=== PATIENT | female | born 1995 | race Caucasian/White ===

== ENCOUNTER 2017-07-24 11:19 | Emergency (ER) | payer OTHER ==
[~2017-07-24 11:19] MED LIST: ALLERGY SHOT; SPRINTEC 35 MCG1 TAB PO; ZYRTEC 10MG10 MG PO
[2017-07-24 11:29] VITALS: BP 117/73; PULSE 85; TEMP 98.6
== END 2017-07-24 11:40 | disposition home or self-care (01) ==
LOC: COL.ER 11:19
DX: S01.91XD Laceration without foreign body of unspecified part of head, subsequent encounter (principal); X58.XXXD Exposure to other specified factors, subsequent encounter